=== PATIENT | male | born 1985 | race Caucasian/White ===

== ENCOUNTER 2020-06-26 09:27 | Day surgery (SDC) | payer OTHER, SELFPAY ==
[2020-06-26] VITALS (13 sets, daily range): BP systolic 113–167; BP diastolic 73–110; PULSE 82–104; RESP 11–28; TEMP 37.3–37.4; O2SAT 99–100
--- NOTE | ~2020-06-26 | XR_ITS ---
EXAMINATION: XR abdomen/kub 1V INDICATION: Rectal foreign body TECHNIQUE: Supine view of the abdomen is obtained. COMPARISON: None FINDINGS: There is a mechanical foreign body projecting in the rectum which has the appearance of a c igarette tone regulator. In addition, there are small serpiginous densities in the rectum which have an appe arance different from the remaining colonic stool. The bowel gas pattern is normal. There is a modera te volume of colonic stool. No dilated loops of bowel are evident. IMPRESSION: 1. Rectal foreign body or bodies. Reviewed, dictated and finalized at location A.
--- NOTE | ~2020-06-26 | CT_ITS ---
EXAMINATION: CT abdomen pelvis wo con DATE: 06/26/2020 11:43 INDICATION: Upper and lower gastrointestinal foreign bodies TECHNIQUE: Computed tomography (CT) of the abdomen and pelvis was performed without intravenous contr ast. Automated exposure control and iterative reconstruction technique were employed. The dose-length product was 302.30 mGy-cm. COMPARISON: None FINDINGS: Lung bases are clear with respiratory motion. Heart size is normal. No pericardial or pleural effusio n. Liver, pancreas, bilateral adrenal glands and kidneys are normal. Likely decompressed gallbladder at the gallbladder fossa visualization of which is mildly degraded by streak artifact related to dary on and gas in the adjacent bowels. Splenic calcifications consistent with old granulomatous disease. Moderate amount of stool in the proximal colon and at the sigmoid colon and rectum. There is an elong ated container-like foreign body with internal layering air-fluid level at the rectum. Alongside this foreign body is a second relatively lucent foreign body with configuration suggesting a small amount of relatively low density or partially aerated material contained within a bag with radiodense closu re device. No other evident lucent or radiopaque foreign bodies identified in the stomach or interven ing bowels although sensitivity is mildly decreased by the motion artifact. Bladder is normal. No free intraperitoneal gas or fluid. No pathologically enlarged abdominal or pelv ic lymphadenopathy. Mild lumbar dextrocurvature. IMPRESSION: 1. Foreign bodies in the rectum as detailed above, currently nonobstructing. Reviewed, dictated and finalized at location B.
--- NOTE | 2020-06-26 10:05 | PC.NURSE ---
Per Officer Aleida with [employer], pt actually has gotten out of [facility] in [place], [place] 06/16, and was covid tested at that time and the test was negative. Dr. Mora made aware. Pt's door opened to be in view. Pt tearful, requests to talk to RN privately. States that when the police came today he shoved a vial of fentanyl and some pills in a bag up my anus . Clarification with patient, and he states I have pain and bleeding . Pt requests not to tell the police, states it's illegal for you to tell the police . Explained that if anything illegal is removed from the patient's body it would be considered evidence and the police would definitely be made aware. Pt also c/o pain to left hand that is handcuffed to the bed; left hand does appear darker in color than the right, however, when pt moves hand it becomes normal color again. Able to fit a finger width in between cuff and skin. Pt told not to flex his wrist and the discoloration will go away. Pt yells ouch, you're trying to kill me when handcuff width tested.
--- NOTE | 2020-06-26 10:32 | ED.GENADULT ---
HPI - General Adult General Chief complaint: Unspecified <NIKO Gonzalez Last Filed: 06/26/20 12:34> Stated complaint: ABD PAIN/CP <NIKO Gonzalez Last Filed: 06/26/20 12:34> Time Seen by Provider: 06/26/20 09:45 <NIKO Gonzalez Last Filed: 06/26/20 12:34> Source: patient, EMS and police <NIKO Gonzalez Last Filed: 06/26/20 12:34> Mode of arrival: EMS <NIKO Gonzalez Last Filed: 06/26/20 12:34> Limitations: other (patient has been guarded as he does not want to get arrested for the drugs he had in his possession) <NIKO Gonzalez Last Filed: 06/26/20 12:34> History of Present Illness HPI narrative: This is a 34 year old male that presents to the ER for abdominal pain. Reports he was about to get arrested so he injected his last amount of meth so he wouldn't be caught with it. Reports he also stuffed fentanyl and special k in his rectum. Reports he swallowed baggies of special k as well. Reports he has abdominal pain that he thinks is because of the foreign bodies in rectum. Denies fever, chest pain, shortness of breath, vomiting, or dysuria. <NIKO Gonzalez Last Filed: 06/26/20 12:34> Related Data Home medications: Home Medications Medication Instructions Recorded Confirmed No Home Medications 06/26/20 06/26/20 <NIKO Gonzalez Last Filed: 06/26/20 12:34> Allergies/adverse reactions: Allergies Allergy/AdvReac Type Severity Reaction Status Date / Time No Known Allergies Allergy Verified 06/26/20 09:31 <NIKO Gonzalez Last Filed: 06/26/20 12:34> Review of Systems Review of Systems: Narrative: CONSTITUTIONAL: Denies fever CARDIOVASCULAR: Denies chest pain RESPIRATORY: Denies dyspnea. GASTROINTESTINAL: Reports abdominal pain. Denies nausea, vomiting, or diarrhea. 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 HEAD: Normocephalic, atraumatic. EYES: EOMI. CHEST: Clear to auscultation. No respiratory distress. No wheezes rales or rhonchi HEART: Regular rate and rhythm. No murmur heard. Normal peripheral pulses. ABDOMEN: Soft, nontender, nondistended, normal active bowel sounds. EXTREMITIES: Normal range of motion. No edema. SKIN: Warm, dry, no rash. NEURO: No focal deficits. Alert and oriented x3. PSYCH: Normal mood and affect RECTUM: External hemorrhoid present, non-thrombosed. No foreign bodies were able to be felt with digital rectal exam <Areli Blue PA-C - Last Filed: 06/26/20 12:34> Course FIBER DESIGN ENGINEER/PA Physician Supervision For this encounter, I have reviewed the PA documentation, treatment plan and medical decision making: And I have had [id number] time with the patient. Discussed with patient plan for GI Lab in agreement at this time all questions were answered <Robbie Mora DO - Last Filed: 06/26/20 13:01> Consultations Consultation #1: Spoke with Dr. Posada about patient and workup. Patient will be taken to the GI lab for endoscopy <Areli Blue PA-C - Last Filed: 06/26/20 12:34> Date: 06/26/20 <NIKO Gonzalez Last Filed: 06/26/20 12:34> Time: 12:00 <Areli Blue PA-C - Last Filed: 06/26/20 12:34> Vital Signs Vital signs: Vital Signs Temperature 99.1 F 06/26/20 09:25 Pulse Rate 98 06/26/20 09:25 Respiratory Rate 18 06/26/20 09:25 Blood Pr
[2020-06-26 10:47] LABS: Basophils Absolute Auto 0.1 K/mm3 (0.0-0.1); Basophils Percent Auto 0.6 % (0.2-1.2); Eosinophils Absolute Auto 0.1 K/mm3 (0-0.3); Eosinophils Percent Auto 1.6 % (0-4.4); Hematocrit 38.6 % (42.0-52.0); Hemoglobin 13.2 g/dL (14.0-18.0); Immature Granulocyte Absolute 0.02 K/mm3 (0.00-0.031); Immature Granulocyte Percent A 0.2 % (0-0.5); Lymphocytes Absolute Auto 1.77 K/mm3 (0.9-3.2); Lymphocytes Percent Auto 20.5 % (18.3-44.2); Mean Corpuscular HGB Conc 34.2 g/dl (32-36); Mean Corpuscular Hemoglobin 27.4 pg (26-34); Mean Corpuscular Volume 80.1 fl (80-100); Mean Platelet Volume 9.6 fl (7.4-10.4); Monocytes Absolute Auto 0.6 K/mm3 (0.1-0.6); Neutrophils Percent Auto 70.1 % (45.5-73.1); Platelet Count Result 301 k/mm3 (150-375); Red Blood Count 4.82 M/mm3 (4.6-6.20); Red Cell Distribution Width 12.5 % (11.5-14.5); White Blood Count 8.6 K/mm3 (4.5-10.0)
--- NOTE | 2020-06-26 11:02 | PC.NURSE ---
Lying on stretcher moaning. c/o low abd pain. xray results pending.
[2020-06-26 11:04] LABS: Alanine Aminotransferase 17 U/L (4-50); Alkaline Phosphatase 65 U/L (38-126); Anion Gap 7 mmol/L (8-16); Aspartate Amino Transferase 21 U/L (17-59); Bilirubin,Total 0.3 mg/dL (0.2-1.3); Blood Urea Nitrogen 18 mg/dL (9-20); Calcium 9.3 mg/dL (8.4-10.2); Carbon Dioxide 30 mmol/L (22-30); Chloride 100 mmol/L (98-107); Estimated CRCL calculation 102 ml/min; Estimated Glomerular Filt Rate > 60; Glucose 111 mg/dL (75-110); Lipase 199 U/L (23-300); Sodium 137 mmol/L (137-145)
[2020-06-26 11:06] LABS: Ethanol < 10 mg/dL (<10)
[2020-06-26 11:06] LABS: Appearance Urine Clear (Clear); Bilirubin Urine Negative (Negative); Blood Urine Negative (Negative); Color Urine Yellow (Yellow); Glucose Urine UA Negative (Negative); Ketones Urine Negative (Negative); Leukocyte Esterase Ur Negative LEU/UL (Negative); Nitrate Urine Negative (Negative); Protein Urine Negative (Negative); Specific Grav Ur 1.018 (1.001-1.035); Urobilinogen Urine Negative mg/dL (<2.0)
[2020-06-26 11:07] LABS: Add Urine Microscopic? NO
[2020-06-26 11:10] LABS: Potassium 3.6 mmol/L (3.4-5.0)
[2020-06-26 11:15] LABS: Barbiturate Screen Urine Negative (Negative); Benzodiazepines Screen Urine Negative (Negative)
[2020-06-26 11:18] LABS: Cannabinoid Screen Urine Positive (Negative); Cocaine Screen Urine Negative (Negative); Methadone Screen Urine Negative (Negative); Opiate Screen Urine Negative (Negative); Phencyclidine Screen Urine Negative (Negative)
--- NOTE | 2020-06-26 12:16 | PC.NURSE ---
rn report given to eugenio in gi lab.
--- NOTE | 2020-06-26 13:28 | SUR.PREOP ---
1245 PATIENT TRANSPORTED TO ENDOSCOPY LAB VIA STRETCHER WITH CERTIFIED MEDICATION AIDE Emiliano DELGADO. PATIENT VOICING CONCERNS OF GOING TO HAVE SURGERY. PATIENT BROUGHT TO THE PRE-OP AREA. PATIENT STATED HE SWALLOWED 3 BAGS OF DRUGS AND I HAVE DRUGS IN A BAGGIE THAT IS UP MY BUTT PATIENT VERY DEMANDING YELLING OUT. EXPLAINED TO PATIENT TO USE CALL LIGHT IF HE NEEDED SOMETHING. PATIENT'S RIGHT WRIST HANDCUFF TO THE STRETCHER. 1250 DR. MAGANA IN TO DISCUSS PATIENT'S CONDITION, PROCEDURE, RISKS AND BENEFITS. 1255 PATIENT STATED I WANT TO GO TO [facility] FOR MEDICAL CARE. TORI JONES [employer] SUPERVISIOR CALLED. 1257 PATIENT ASKING TO SPEAK TO HIS ARTIFICIAL STONE APPLICATOR. I SPOKE WITH CERTIFIED MEDICATION AIDE Emiliano DELGADO IN REGARDS TO THE PATIENT SPEAKING TO HIS ARTIFICIAL STONE APPLICATOR. CERTIFIED MEDICATION AIDE STATED FROM HER STAND POINT A ARTIFICIAL STONE APPLICATOR IS NOT NEEDED. TORI CALLED TO COME SPEAK WITH PATIENT. 1300 TORI HERE TO SPEAK WITH THE PATIENT. 1310 PATIENT COMPLAINS OF ABDOMINAL PAIN. [address] MAGANA REGARDING PATIENT'S ABDOMINAL PAIN. 1323 PHONE GIVEN TO PATIENT TO MAKE PHONE CALL. 1337 WENT TO GIVE PATIENT TORADOL FOR PAIN PATIENT REFUSED TORADOL. STATED I WANT DILAUDID, EXPLAINED TO PATIENT THAT I DIDN'T HAVE AN ORDER FOR DILAUDID. SPOKE WITH DR. MAGANA REGARDING PATIENT'S REFUSAL OF TORADOL NO ORDERS FURTHER RECEIVED. 1338 OFFERED TORADOL EXPLAINED DOCTOR DIDN'T ORDER DILAUDID. PATIENT REFUSED TORADOL. 1339 POLICE RELEASED PATIENT FROM [facility] AND REMOVED HANDCUFF ON RIGHT WRIST. 1340 PATIENT STATES I WANT SURGERY 1341 PATIENT ASKED FOR BEDPAN TO TRY AND GO 1342 PATIENT GIVEN BEDPAN AND PATIENT STATED NO I NEED TO URINATE. 1343 PATIENT GIVEN URINAL, THEN STATED I DON'T HAVE TO GO TO THE BATHROOM 1344 PATIENT GIVEN CONSENT FOR UPPER ENDOSCOPY AND COLONOSCOPY FOR HIM TO SIGN. 1350 DR. ROSARIO HERE TO TALK WITH PATIENT REGARDING ANESTHESIA. 1352 DR[address] ROSARIO CALLED AND SPOKE WITH DR. MAGANA REGARDING INFORMATION THE PATIENT TOLD HIM. [address] MAGANA NEW ORDERS RECEIVED FOR CONSENT 1357 ANESTHESIA PLAN RELAYED TO PROCEDURAL STAFF 1409 NEW CONSENT FOR PROCEDURE GIVEN TO PATIENT 1410 CONSENT SIGNED PER PATIENT.
--- NOTE | 2020-06-26 14:02 | WPDANESEPPF ---
Anes - Initial Pre Proc Eval Procedure: Operation Date: 06/26/20 13:00 Proposed Procedures p Esophagogastroduodenoscopy For Foreign Body Removal - Jewel Posada MD s Flexible Sigmoidoscopy - Jewel Posada MD Date/Time: 06/26/20 14:02 Surgeon: Jewel Posada MD Pre Op Diagnosis: ABD PAIN/CP Patient Data Age: 34 Gender: M Height: 5 ft 9 in Weight: 77.1 kg Last Vital Signs Temp 37.4 C 06/26/20 12:50 Pulse 85 06/26/20 12:50 Resp 20 06/26/20 12:50 BP 133/85 06/26/20 12:50 Pulse Ox 100 06/26/20 12:50 Allergies Allergy/AdvReac Type Severity Reaction Status Date / Time No Known Allergies Allergy Verified 06/26/20 13:10 Home Medications Medication Instructions Recorded Confirmed Type No Home Medications 06/26/20 06/26/20 History Laboratory Tests 06/26/20 06/26/20 06/26/20 10:42 10:42 10:42 WBC 8.6 K/mm3 K/mm3 (4.5-10.0) RBC 4.82 M/mm3 M/mm3 (4.6-6.20) Hgb 13.2 g/dL L g/dL (14.0-18.0) Hct 38.6 % L % (42.0-52.0) MCV 80.1 fl fl (80-100) MCH 27.4 pg pg (26-34) MCHC 34.2 g/dl g/dl (32-36) RDW 12.5 % % (11.5-14.5) Plt Count 301 k/mm3 k/mm3 (150-375) MPV 9.6 fl fl (7.4-10.4) Immature Gran % (Auto) 0.2 % % (0-0.5) Neut % (Auto) 70.1 % % (45.5-73.1) Lymph % (Auto) 20.5 % % (18.3-44.2) Sabine % (Auto) 7.0 % % (2.6-8.5) Eos % (Auto) 1.6 % % (0-4.4) Baso % (Auto) 0.6 % % (0.2-1.2) Lymph # (Auto) 1.77 K/mm3 K/mm3 (0.9-3.2) Sabine # (Auto) 0.6 K/mm3 K/mm3 (0.1-0.6) Eos # (Auto) 0.1 K/mm3 K/mm3 (0-0.3) Baso # (Auto) 0.1 K/mm3 K/mm3 (0.0-0.1) Abs Immat Gran (auto) 0.02 K/mm3 K/mm3 (0.00-0.031) Absolute Neuts (auto) 6.0 K/mm3 K/mm3 (1.3-6.7) Absolute Nucleated RBC 0.0 K/mm3 K/mm3 (0.0-0.012) Nucleated RBC % 0.0 % % (0.0-0.2) Sodium 137 mmol/L mmol/L (137-145) Potassium 3.6 mmol/L mmol/L (3.4-5.0) Chloride 100 mmol/L mmol/L (98-107) Carbon Dioxide 30 mmol/L mmol/L (22-30) Anion Gap 7 mmol/L L mmol/L (8-16) BUN 18 mg/dL mg/dL (9-20) Creatinine 0.90 mg/dL mg/dL (0.7-1.3) Estim Creat Clear Calc 102 ml/min ml/min Estimated GFR > 60 (59 - ) Glucose 111 mg/dL H mg/dL (75-110) Calcium 9.3 mg/dL mg/dL (8.4-10.2) Total Bilirubin 0.3 mg/dL mg/dL (0.2-1.3) AST 21 U/L U/L (17-59) ALT 17 U/L U/L (4-50) Alkaline Phosphatase 65 U/L U/L (38-126) Total Protein 7.0 g/dL g/dL (6.3-8.2) Albumin 4.0 g/dL g/dL (3.5-5.1) Lipase 199 U/L U/L (23-300) Urine Color Urine Appearance Urine pH Ur Specific [place] Urine Protein Urine Glucose (UA) Urine Ketones Ur Blood (Man) Urine Nitrate Urine Bilirubin Urine Urobilinogen Leukocyte Esterase Rfl Urine Opiates Screen Urine Methadone Screen Ur Barbiturates Screen Ur Phencyclidine Scrn Ur Amphetamine Screen U Benzodiazepines Scrn Urine Cocaine Screen U Cannabinoids Screen Ethyl Alcohol < 10 mg/dL mg/dL (<10) 06/26/20 06/26/20 10:49 10:49 WBC RBC Hgb Hct MCV MCH MCHC RDW Plt Count MPV Immature Gran % (Auto) Neut % (Auto) Lymph % (Auto) Sabine % (Auto) Eos % (Auto) Baso % (Auto) Lymph # (Auto) Sabine # (Auto) Eos # (Auto)
[2020-06-26] MEDS: LACTATED RINGERS 1,000 ML 150 ML IV CONT (14:06)
--- NOTE | 2020-06-26 14:24 | SUR.OPER ---
3 foreign bodies were removed from rectum, 1 purple elastic tie, 1 black small business analyst project manager, 1 tape appearing wrapped item containing a white substance. All three items placed in biohazard bag with pt label attached. supervisor [employer] and can supply called at 1427 to retrieve items. 1435 Monet VILLALTAsand wheeler picked biohazard bag up from procedure room 3 off of endoscopic cart.
--- NOTE | 2020-06-26 14:52 | PM.HPGS ---
History of Present Illness History of Present Illness Consent: Risks, benefits, and alternatives have been discussed and questions answered. Patient agrees to proceed with procedure. Chief complaint: ABD PAIN/CP Narrative: Ovidio Simons is a 34 year old male introduced foreign body earlier today after police was going to take him to [facility] Review of Systems Constitutional: Constitutional: Denies headache(s) and Denies weakness Eyes: Eyes: Denies blurry vision ENT: Reports Normal hearing present, Denies headache(s) and Denies neck pain Cardiovascular: Cardiovascular: Denies chest pain and Denies dyspnea Respiratory: Respiratory: Denies dyspnea Gastrointestinal: Gastrointestinal: Reports no additional gastrointestinal complaints Genitourinary: Genitourinary: Denies dysuria Musculoskeletal: Musculoskeletal: Denies neck pain Integumentary/Breasts: Skin/Breast: Denies dry skin Neurologic: Reports Normal hearing present, Denies headache(s) and Denies weakness Psychiatric: Psychiatric: Denies anxiety Endocrine: Endocrine: Denies change in body appearance Hematologic/Lymphatic: Hematologic/Lymphatic: Denies easy bleeding Allergic/Immunologic: Allergic/Immunologic: Denies urticaria [facility] Past Medical History Medical History (Updated 06/26/20 @ 14:03 by Jonh Hayden MD) Polysubstance abuse Social History Social History Smoking status: Current every day smoker Substance use: current Substance use type: amphetamines, opiates and 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 Meds Home Medications and Allergies Home Medications Medication Instructions Recorded Confirmed Type No Home Medications 06/26/20 06/26/20 History Allergies Allergy/AdvReac Type Severity Reaction Status Date / Time No Known Allergies Allergy Verified 06/26/20 13:10 Vital Signs Vital Signs - 24 hr 06/26/20 09:25 06/26/20 09:39 06/26/20 09:45 Temperature 99.1 F Pulse Rate 98 102 H Respiratory Rate 18 18 28 H Blood Pressure 167/96 H Pulse Oximetry 100 100 06/26/20 09:46 06/26/20 10:00 06/26/20 10:01 Temperature Pulse Rate 103 H 104 H Respiratory Rate 26 H 20 11 L Blood Pressure 162/94 H 150/101 H Pulse Oximetry 100 100 100 06/26/20 10:15 06/26/20 10:16 06/26/20 10:20 Temperature Pulse Rate 96 96 Respiratory Rate 15 11 L Blood Pressure 166/110 H Pulse Oximetry 100 100 06/26/20 12:50 Temperature 99.3 F Pulse Rate 85 Respiratory Rate 20 Blood Pressure 133/85 Pulse Oximetry 100 Exam Const: General: comfortable and no acute distress HENMT: General nose exam: Normal nares present Eyes: General: appearance normal, both eyes and all related structures Neck: Neck: no JVD Resp: Auscultation: clear to auscultation bilaterally Cardio: Rate: regular rate Rhythm: regular rhythm GI: Inspection: non-distended GI Palp: Yes Soft to palpation Skin: General skin exam: normal color Neuro: General: gait normal Speech: normal speech Extrem: General: normal to inspection Psych: Mental Status: mental status grossly normal Assessment and Plan Assessment and plan (1) Foreign body of rectum: Qualifiers: Encounter type: initial encounter Qualified Code(s): T18.5XXA - Foreign body in anus and rectum, initial encounter Code(s): T18.5XXA - Foreign body in anus and rectum, initial encounter Status: Acute Assessment and Plan: will proceed with proctosigmoidoscopy
--- NOTE | 2020-06-26 15:28 | SUR.PHASEII ---
1515 Wheeled pt to front lobby for ride pickup accompanied by Korina Rn- pt states it was his stitchdown toe former coming to get him. Tried # again. No answer. CHecking parking lot. No car pt described seen in lot by Surgery [facility].1525 Call PAWAN Moran taking over pt care and checking front lot by ER entrance. Mario
--- NOTE | 2020-06-26 16:36 | SUR.PHASEII ---
Jute Bag Cutting Machine Operator contacted upon pt arrival to recovery. Jute Bag Cutting Machine Operator stated he had left the hospital to get food. RN informed subway train driver to be back at hospital by 1510 for pickup. Jute Bag Cutting Machine Operator stated they would head this way. 1520 waiting on ride. Jute Bag Cutting Machine Operator contacted and stated he was in [place] and was on his way. 1545 Jute Bag Cutting Machine Operator called again after multiple attempts he again stated he was in [place] and was on his way. 1615 Attempted to contact Jute Bag Cutting Machine Operator again multiple times with no answer. Pt changed his story on who was coming and who was actually contacted. Slate Cutter Operator was contacted and instructed to give pt a cab voucher. At 1635 pt given cab voucher [employer] company called to address given by pt. pt waiting by main entrance.
== END 2020-06-26 16:35 | disposition home or self-care (01) ==
LOC: ANHED 10:03 → ANHSURGERY 12:18 → ANHENDO 13:22
PROVIDERS: Physician Assistant; Emergency Provider Emergency Medicine; Visit Provider Internal Medicine Gastroenterology
PROC: 0DJ08ZZ Inspection of Upper Intestinal Tract, Via Natural or Artificial Opening Endoscopic (ICD-10-PCS; CPT 43235; principal; 2020-06-26 13:00)
DX: T18.5XXA Foreign body in anus and rectum, initial encounter (principal); F19.10 Other psychoactive substance abuse, uncomplicated
CPT/HCPCS: 45332; 36415; 74018; 74176; 80053; 80307; 81003; 83690; 85025; 96365; 99285; J0131; J2250; J2405; J2704; J3010; J7120